=== PATIENT | female | born 2000 | race Two or more races ===

== ENCOUNTER 2025-08-08 19:07 | Observation (INO) | payer MEDICAID, SELFPAY ==
[2025-08-08 19:14] VITALS: BMI 42.5
[2025-08-08 19:26] VITALS: BP 108/67; PULSE 86; RESP 17; RESP 99; TEMP 36.7
[2025-08-08 19:27] VITALS: BP 108/67; PULSE 86
== END 2025-08-08 20:16 | disposition home or self-care (01) ==
PROVIDERS: Admitting Provider Obstetrics & Gynecology; Visit Provider Obstetrics & Gynecology
DX: O36.8120 Decreased fetal movements, second trimester, not applicable or unspecified (principal); Z3A.27 27 weeks gestation of pregnancy
CPT/HCPCS: 59025; 59899

== ENCOUNTER 2025-08-11 09:05 | Outpatient (AMB) | payer MEDICAID, SELFPAY ==
[2025-08-11 09:18] VITALS: BP 119/77; PULSE 87; RESP 16; TEMP 36.7; O2SAT 98; BMI 42.4
--- NOTE | 2025-08-11 09:18 | OBCLNT_ITS ---
Vital Signs 08/11/25 09:18 Height 1.63 m Height Method Stated Weight 112.661 kg Weight Measurement Method Standing Scale BMI 42.4 BP 119/77 Blood Pressure Source Automatic Cuff Blood Pressure Location Left Upper Arm Position Sitting Respiration 16 Pulse 87 Pulse Source Monitor Temp 98.1 F Temp Source Oral Pulse Oximetry (%) 98 Oxygen Delivery Method Room Air Allergies/Home Meds Allergies & Medications Allergies amoxicillin Allergy (Verified 08/11/25 09:19) Medication Reconciliation prenat.vits,eddie,[id number] 1 tab PO QDAY 12/04/20 [History Confirmed 08/11/25] aspirin 81 mg tablet,delayed release mg 08/08/25 [History Confirmed 08/11/25] Intake Visit Data Collection New Patient or Established: Established Patient (seen at [facility] within 3 years) Reason for Visit:: INITIAL CARE Seen by Clinical Staff ONLY (RN/MA): No Hand Booked Folder And Stitcher Required: No Do You Feel Safe at Home: Yes Authorities Contacted: N/A PCP or OBGYN visit in last 3 months: Yes Hx Now: Yes Are you currently on any form of Control: No Pain Present Currently: No Pain Scale Used: White-Goodman/Numerical Pain scale:: 0 Smoking Status Smoking Status: Never smoker Questionnaires Covid-19 Vaccine Questionnaire Has patient been vacinated for Covid-19 Have you been vacinated for Covid-19: Yes PHQ-9 PHQ-2 Over the last 2 weeks, how often have you been bothered by any of the following problems? 1. Little interest or pleasure in doing things: not at all 2. Feeling down, depressed, or hopeless: not at all Total score: 0 PHQ-9 3. Trouble falling or staying asleep, or sleeping too much: Not at all 4. Feeling tired or having little energy: Not at all 5. Poor appetite or overeating: Not at all 6. Feeling bad about yourself - or that you are a failure or have let yourself or your family down: Not at all 7. Trouble concentrating on things, such as reading the newspaper or watching television: Not at all 8. Moving or speaking so slowly that other people could have noticed? - Or the opposite - being so fidgety or restless that you have been moving around a lot more than usual: not at all 9. Thoughts that you would be better off or of hurting yourself in some way: Not at all Total score: 0 Source: Developed by Drs. Jamie Kohler, Sofía Whittaker, Barrett Manzo and colleagues, with an educational miranda from [employer]. 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 Feel Safe at Home: Yes History of Present Illness HPI Narrative Patient is a 24-year-old at 28 weeks and 0 days gestation, presenting for transfer of care from [facility]. She reports experiencing regular discomforts, including sciatic pain, stomach pain, some cramping, and pressure. She denies any significant complications or concerns with her current . She has a history of one previous resulting in primary in 2020 for late decelerations with category 3 tracing, complicated by placental abruption. Her son from her previous has autism but is otherwise healthy. Her last menstrual period was on 01-27-2025, with an estimated due date of 11-03-2025. She has been receiving care from Dr. Hahn and has been attending appointments every 2 weeks. The patient reports that all her labs and ultrasounds have been good so far. 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: Past Medical History Past Medical History: No Hx Neurological Disorders, No Hx Cardiac Disorders, No Hx Cancer, No Hx Blood Disorders, No Hx Gastrointestinal Disorders, No Hx Renal Disease, No Hx Diabetes Mellitus Type 1 and No Hx Diabetes Mellitus Type 2 OB Initial Visit OB Flowsheet OB Flowsheet Initial Weight: Not Recorded Date -?-?-?-?-?-?-?-?-?-?-?-?- EGA Weight BP Alb Glu CTX Pres Fundal ht FHR Mov Dilation Station Effacement Hx Notes Visit Note 08/11/25 -?-?-?-?-?-?-?-?-?-?-?-?- 28w 0d 112.661 kg 119/77 absent cephalic 30 14 5 active - Samy Oates is a 24-year-old female presenting for Transfer of Care from [facility] at 28 weeks gestation. - Past obstetric history significant for primary in 2020 due to late decelerations with category 3 tracing. - Current : - LMP: 01/27/2025 - CHARLA: 11/03/2025 - Patient reports experiencing: - Regular discomforts - Sciatic pain - Stomach pain - Some cramping - Some pressure - Denies any major complications in curr ent - Previous child has autism but is otherwise healthy - Schedule at 39 weeks; date to be provided at next visit - Order CBC and RPR today - Follow up in 2 weeks (at 30 weeks gest ation) - Administer Tdap vaccine at next visit - Schedule high-level ultrasound between 30-34 weeks to check placenta, growth, and anatomy - Continue visits every 2 weeks until 35 weeks, then weekly thereafter Menstrual History Menstrual reliability: definite Flow: normal Menstrual regularity: regular Monthly: Yes Age at menarche: 13 On control pills at conception: No OB History : 2 Para: 1 # of Living Children: 1 Delivery History 1st : Child's name: DANI date: 12/04/20 sex: male Gestational age at delivery (weeks): 40 Delivery type: Delivery complications: EMERGENCY C SECTION History of depression before or after : No Infection History & Risk Evaluation History of STDs: none Genetic Screening & History Genetic Screening/Teratology Counseling - Includes patient, baby's father, or anyone in either family with: 1. Patient's age 35 years or older as of estimated date of delivery: No 2. Thalassemia (Greenlandic, Luxembourgish, Mediterranean, or Background); MCV less than 80: No 3. Neural Tube Defect (Meningomyelocele, Spina Bifida, or Anencephaly): No 4. Congenital Heart Defect: No 5. Down Syndrome: No 6. Johnny-Sachs (Ashkenazi Yazdanism, Cajun, Vietnamese Huntley): No 7. Aston Disease (Ashkenazi Yazdanism): No 8. Familial Dysautonomia (Ashkenazi Yazdanism): No 9. Sickle Cell Disease or Trait (): No 10. Hemophilia or other blood disorders: No 11. Muscular Dystrophy: No 12. Cystic Fibrosis: No 13. [place]'s Chorea: No 14. Mental Retardation/Autism: Yes (AUTISM SON) 15. Other inherited genetic or chromosomal disorder: No 16. Maternal Metabolic Disorder (EG,TYPE 1 Diabetes, PKU): No 17. Patient or baby's father had a child with defects not listed above: No 18. Recurrent loss or a stillbirth: No 19. Medications (including supplements, vitamins, herbs or otc drugs)/illicit/recreational drugs/alcohol since last menstrual period: No 20. Any other: No Infection History 1. Live with someone with TB or exposed to TB: No 2. Rash or viral illness since last menstrual period: No 3. Hepatitis B,C: No Other (see comments) Source: [employer] Exam General General Appearance: alert, in no apparent distress and healthy appearing Head Head exam: atraumatic Neck Neck exam: Present normal inspection and trachea midline Chest Chest inspection: Present normal inspection and symmetric chest wall rise External exam: Present normal external exam; Absent tenderness Neuro Neurological exam: Present oriented X3 Psych Psychiatric exam: Present normal affect and normal mood Office Procedures OB Clinic LOC & Office Proc's Nursing/Assessment Patient Status: Established Patient OB Clinic Nursing Assessment: Medication Reconciliation, Update PMH in EMR and Vital Signs OB Clinic Coordination of Care: Complex Care and Chronic Disease 1-5, Consent,records obtained, informed consent, Education Simp Pt/Fam, 1 Ins Authorization, Lab and Imaging orders, Results/Orders obtained and Staff clarify orders Special Needs: Heart tones Established Patient Charge Established Patient Point Assignment: 150 Established Patient Point Charge: EP Level 4 (120-155) Assessment & Plan Diagnosis / Problem List (1) Supervision of high risk , unspecified, first trimester: Status: Acute (2) Maternal care for low transverse scar from previous delivery: Status: Acute (3) Morbid obesity due to excess calories: Status: Acute Plan , intrauterine, 28 weeks Assessment: Patient is a 24-year-old at 28 weeks and 0 days gestation based on LMP of 01/27/2025, with CHARLA of 11/03/2025. History of primary in 2020 for late decelerations with category 3 tracing, reported as placental abruption. Current is uncomplicated with normal labs and genetic screening. Patient reports regular discomforts including sciatic pain, stomach pain, cramping, and pressure. Plan: - Order CBC and RPR - Schedule follow-up appointment in 2 weeks - Plan for high-level ultrasound between 30-34 weeks gestation - Schedule 39-week repeat - Administer Tdap vaccine at 30-week appointment - Continue care with visits every 2 weeks until 35 weeks, then weekly Obesity Assessment: Patient's weight is 112 kg with a BMI of 42.4, which falls into the obesity category. Plan: - Monitor weight gain throughout
== END 2025-08-11 09:33 | disposition home or self-care (01) ==
LOC: HODSOBC 09:05
PROVIDERS: Supervising Provider Obstetrics & Gynecology; Visit Provider Obstetrics & Gynecology
DX: O09.293 Supervision of pregnancy with other poor reproductive or obstetric history, third trimester (principal); O34.211 Maternal care for low transverse scar from previous cesarean delivery; O09.893 Supervision of other high risk pregnancies, third trimester; O99.213 Obesity complicating pregnancy, third trimester; E66.01 Morbid (severe) obesity due to excess calories; Z3A.28 28 weeks gestation of pregnancy; Z87.59 Personal history of other complications of pregnancy, childbirth and the puerperium; Z88.0 Allergy status to penicillin
CPT/HCPCS: 99214; G0463

== ENCOUNTER 2025-08-30 10:07 | Outpatient (AMB) | payer MEDICAID, SELFPAY ==
[2025-08-30 10:32] VITALS: BP 115/66; PULSE 84; RESP 16; TEMP 36.4; O2SAT 98; BMI 42.9
--- NOTE | 2025-08-30 10:32 | OBCLNT_ITS ---
Vital Signs 08/30/25 10:32 Height 1.63 m Height Method Stated Weight 114.022 kg Weight Measurement Method Standing Scale BMI 42.9 BP 115/66 Blood Pressure Source Automatic Cuff Blood Pressure Location Left Upper Arm Position Sitting Respiration 16 Pulse 84 Pulse Source Monitor Temp 97.6 F Temp Source Oral Pulse Oximetry (%) 98 Oxygen Delivery Method Room Air Allergies/Home Meds Allergies & Medications Allergies amoxicillin Allergy (Verified 08/30/25 10:33) Medication Reconciliation prenat.vits,eddie,[id number] 1 tab PO QDAY 12/04/20 [History Confirmed 08/30/25] aspirin 81 mg tablet,delayed release mg 08/08/25 [History Confirmed 08/30/25] Intake Visit Data Collection New Patient or Established: Established Patient (seen at [facility] within 3 years) Reason for Visit:: CARE Seen by Clinical Staff ONLY (RN/MA): No Brush Fabrication Supervisor Required: No Do You Feel Safe at Home: Yes Authorities Contacted: N/A PCP or OBGYN visit in last 3 months: Yes Hx Now: Yes Are you currently on any form of Control: No Pain Present Currently: No Pain Scale Used: White-Goodman/Numerical Pain scale:: 0 Smoking Status Smoking Status: Never smoker Questionnaires Covid-19 Vaccine Questionnaire Has patient been vacinated for Covid-19 Have you been vacinated for Covid-19: Yes PHQ-9 PHQ-2 Over the last 2 weeks, how often have you been bothered by any of the following problems? 1. Little interest or pleasure in doing things: not at all 2. Feeling down, depressed, or hopeless: not at all Total score: 0 PHQ-9 3. Trouble falling or staying asleep, or sleeping too much: Not at all 4. Feeling tired or having little energy: Not at all 5. Poor appetite or overeating: Not at all 6. Feeling bad about yourself - or that you are a failure or have let yourself or your family down: Not at all 7. Trouble concentrating on things, such as reading the newspaper or watching television: Not at all 8. Moving or speaking so slowly that other people could have noticed? - Or the opposite - being so fidgety or restless that you have been moving around a lot more than usual: not at all 9. Thoughts that you would be better off or of hurting yourself in some way: Not at all Total score: 0 Source: Developed by Drs. Jamie Kohler, Sofía Whittaker, Barrett Manzo and colleagues, with an educational miranda from [employer]. 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: Past Medical History Past Medical History: No Hx Neurological Disorders, No Hx Cardiac Disorders, No Hx Cancer, No Hx Blood Disorders, No Hx Gastrointestinal Disorders, No Hx Renal Disease, No Hx Diabetes Mellitus Type 1 and No Hx Diabetes Mellitus Type 2 Care OB Visit Log OB Flowsheet Initial Weight: Not Recorded Date -?-?-?-?-?-?-?-?-?-?-?-?- EGA Weight BP Alb Glu CTX Pres Fundal ht FHR Mov Dilation Station Effacement Hx Notes Visit Note 08/11/25 -?-?-?-?-?-?-?-?-?-?-?-?- 28w 0d 112.661 kg 119/77 absent cephalic 30 14 5 active - Samy Oates is a 24-year-old female presenting for Transfer of Care from [facility] at 28 weeks gestation. - Past obstetric history significant for primary in 2020 due to late decelerations with category 3 tracing. - Current : - LMP: 01/27/2025 - CHARLA: 11/03/2025 - Patient reports experiencing: - Regular discomforts - Sciatic pain - Stomach pain - Some cramping - Some pressure - Denies any major complications in curr ent - Previous child has autism but is otherwise healthy - Schedule at 39 weeks; date to be provided at next visit - Order CBC and RPR today - Follow up in 2 weeks (at 30 weeks gest ation) - Administer Tdap vaccine at next visit - Schedule high-level ultrasound between 30-34 weeks to check placenta, growth, and anatomy - Continue visits every 2 weeks until 35 weeks, then weekly thereafter 08/30/25 -?-?-?-?-?-?-?-?-?-?-?-?- 30w 5d 114.022 kg 115/66 absent cephalic 32 15 2 active - Patient reports: - No leaking of fluid - No vaginal bleeding - movement present - Patient has decided on a repeat C-sect ion for delivery. - Recent ultrasound and genetic testing scheduled for two days from visit date. - Scheduled for November 02 at 7:30 AM - Tdap vaccination to be administered to day - Ultrasound scheduled for Saturday (tw o days from now), including genetic testing - Follow-up appointment in 2 weeks - Patient advised to have take t cathleen off work from after Thanksgiving for about a week around the date CHARLA Calculator Estimated Delivery Date Method Current WG Current Estimate 11/03/25 LMP (Certain) 30w 5d Other Estimates 10/29/25 Ultrasound #1 31w 3d 11/03/25 Manual 30w 5d Final due date by last menstrual period Notes Visit Date: 08/11/25 Last Updated by: Kirill Morin MD - CBC (03-21-2025): Hemoglobin 11.8 g/dL, platelets 288 - Panel (03-21-2025): Blood group O-positive, antibody screen negative, RPR nonreactive, hepatitis B negative, HIV negative, rubella immune - [place] genetic screening (May 2020): Negative Office Procedures OBC Clinic LOC & Office Proc's Nursing/Assessment Patient Status: Established Patient OB Clinic Nursing Assessment: Medication Reconciliation, Update PMH in EMR and Vital Signs OB Clinic Coordination of Care: Complex Care and Chronic Disease 1-5, C onsent,records obtained, informed consent, Education Simp Pt/Fam, Lab and Imaging orders, Results/Orders obtained and Staff clarify orders Special Needs: Heart tones Established Patient Charge Established Patient Point Assignment: 135 Established Patient Point Charge: EP Level 4 (120-155) Immunizations diphth,pertus(acell),tetanus 2.5 Lf unit-8 mcg-5 Lf/0.5mL IM syringe Performing Provider: Kirill Morin MD Performing Location: [facility] Administered by: Anahi Ellison MA on 08/30/25 10:58 Dose Route Admin Location Dispensed Lot Number Expiration Date Pack age [facility] Corporate Quality Assurance Manager 0.5 mL IM Left Deltoid 0.5 mL [id number] 10/21/27 82829-779-88 [id number] [employer] VIS Given Date VIS Provided VIS Publication Date 08/30/25 Single Vaccine 25 Eligibility Eligibility Date Funding Source [facility] Assessment & Plan Diagnosis / Problem List (1) Supervision of high risk , unspecified, third trimester: Status: Acute (2) Maternal care for low transverse scar from previous delivery: Status: Acute Plan Problem List - , 30 weeks and 5 days - 2, Para 1 - Scheduled repeat section Assessment at 30 weeks and 5 days gestation, presenting for routine visit. Patient's hemoglobin is 11.7 g/dL, which is within normal range. ARPIA test is negative. heart rate is 152 bpm, which is within normal limits. Patient reports normal movement, with no leaking or bleeding. Patient has decided on a repeat section for delivery. EDC is noted as November 03, with the section tentatively scheduled for November 02 at 39 weeks and 5 or 6 days gestation. Plan - Scheduled for November 02 at 7:30 AM - Tdap vaccination to be administered today - Ultrasound scheduled for Saturday (two days from now), including genetic testing - Follow-up appointment in 2 weeks - Patient advised to have take time off work from after Thanksgi for about a week around the date 1. Progress Reviewed gestational age, growth, and heart rate. Planned frequent visits (every 2 weeks until 36 weeks, then weekly). 2. Instructed patient to monitor movements and report decreases i mmediately. 3. Testing Counseled on routine third-trimester labs per guidelines. Discussed potential need for ultrasound or monitoring based on risk factors. 4. Preeclampsia Precaution Educated on preeclampsia signs: severe headache, vision changes, right upper quadrant pain, sudden swelling. Advised urgent reporting of symptoms and discussed blood pressure monitoring if high risk. 5. Labor Precautions Reviewed labor signs: regular contractions, pelvic pressure, back pain, bleeding, or fluid leakage. Instructed to seek immediate care for these symptoms. 6. Lifestyle and Delivery Preparation Reinforced vitamins, nutrition, and safe activity. Discussed plan, pain management, and . Advised on labor preparation (e.g., hospital bag) and expectations. 7. Psychosocial Support Assessed emotional well-being and offered resources for mental health or parenting support.
== END 2025-08-30 10:58 | disposition home or self-care (01) ==
LOC: HODSOBC 10:07
PROVIDERS: Supervising Provider Obstetrics & Gynecology; Visit Provider Obstetrics & Gynecology
DX: O09.293 Supervision of pregnancy with other poor reproductive or obstetric history, third trimester (principal); O34.211 Maternal care for low transverse scar from previous cesarean delivery; Z3A.30 30 weeks gestation of pregnancy; Z23 Encounter for immunization; Z88.0 Allergy status to penicillin
CPT/HCPCS: 90471; 90715; 99214; G0463

== ENCOUNTER 2025-09-21 17:41 | Observation (INO) | payer MEDICAID, SELFPAY ==
[2025-09-21 17:41] VITALS: BP 118/57; RESP 16; RESP 99; TEMP 37.1
[2025-09-21 18:08] VITALS: BP 115/57; PULSE 80
[2025-09-21 18:33] LABS: ROM Kit Exp Date# 4/11/28; ROM Kit Lot # 58106258; Swb Mxed in Solvent 1 min? Yes
[2025-09-21 18:34] LABS: ROM Swab Mixed By: ASTOA1; Rupture of Fetal Membranes Negative (Negative)
[2025-09-21 18:38] VITALS: BP 118/57; PULSE 76
[2025-09-21 18:47] VITALS: BMI 43.9
== END 2025-09-21 19:08 | disposition home or self-care (01) ==
PROVIDERS: Admitting Provider Obstetrics & Gynecology; Visit Provider Obstetrics & Gynecology
DX: O26.899 Other specified pregnancy related conditions, unspecified trimester (principal); Z3A.00 Weeks of gestation of pregnancy not specified; R10.20 Pelvic and perineal pain unspecified side
CPT/HCPCS: 59025; 59899; 84112

== ENCOUNTER 2025-09-24 09:04 | Outpatient (AMB) | payer MEDICAID, SELFPAY ==
[2025-09-24 09:16] VITALS: BP 122/75; PULSE 74; RESP 18; TEMP 36.2; O2SAT 99; BMI 42.5
--- NOTE | 2025-09-24 09:16 | AMB.OBVISIT ---
Vital Signs 09/24/25 09:16 Height 1.66 m Height Method Stated Weight 117.225 kg Weight Measurement Method Standing Scale BMI 42.5 BP 122/75 Blood Pressure Source Automatic Cuff Blood Pressure Location Left Upper Arm Position Sitting Respiration 18 Pulse 74 Pulse Source Monitor Temp 97.2 F Temp Source Oral Pulse Oximetry (%) 99 Oxygen Delivery Method Room Air Allergies/Home Meds Allergies & Medications Allergies amoxicillin Allergy (Verified 09/24/25 09:17) Medication Reconciliation prenat.vits,eddie,[id number] 1 tab PO QDAY 12/04/20 [History Confirmed 09/24/25] aspirin 81 mg tablet,delayed release mg 08/08/25 [History Confirmed 09/24/25] vits no.130-ferrous fum 27 mg iron-folic acid 800 mcg tablet ( Vitamin) tab PO QDAY 09/21/25 [History Confirmed 09/24/25] Intake Visit Data Collection New Patient or Established: Established Patient (seen at [facility] within 3 years) Reason for Visit:: OBC Seen by Clinical Staff ONLY (RN/MA): No Breakdown Person Required: No Do You Feel Safe at Home: Yes Authorities Contacted: N/A PCP or OBGYN visit in last 3 months: Yes Date of Last PCP or OBGYN visit: 09/22/25 Hx Now: Yes Are you currently on any form of Control: No Pain Present Currently: No Pain Scale Used: White-Goodman/Numerical Pain scale:: 0 Smoking Status Smoking Status: Never smoker Immunizations Flu Vaccine in the Last 12 Months: No Flu Vaccine Exclusion Criteria: No Exclusion Criteria Questionnaires Covid-19 Vaccine Questionnaire Has patient been vacinated for Covid-19 Have you been vacinated for Covid-19: Yes PHQ-9 PHQ-2 Over the last 2 weeks, how often have you been bothered by any of the following problems? 1. Little interest or pleasure in doing things: not at all 2. Feeling down, depressed, or hopeless: not at all Total score: 0 PHQ-9 3. Trouble falling or staying asleep, or sleeping too much: Not at all 4. Feeling tired or having little energy: Not at all 5. Poor appetite or overeating: Not at all 6. Feeling bad about yourself - or that you are a failure or have let yourself or your family down: Not at all 7. Trouble concentrating on things, such as reading the newspaper or watching television: Not at all 8. Moving or speaking so slowly that other people could have noticed? - Or the opposite - being so fidgety or restless that you have been moving around a lot more than usual: not at all 9. Thoughts that you would be better off or of hurting yourself in some way: Not at all Total score: 0 If you checked off any problems, how difficult have these problems made it for you to do your work, take care of things at home, or get along with other people?: not difficult at all Source: Developed by Drs. Jamie Kohler, Sofía Whittaker, Barrett Manzo and colleagues, with an educational miranda from [employer]. 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 History Past Medical History: No Hx Neurological Disorders, No Hx Cardiac Disorders, No Hx Cancer, No Hx Blood Disorders, No Hx Gastrointestinal Disorders, No Hx Renal Disease, No Hx Diabetes Mellitus Type 1 and No Hx Diabetes Mellitus Type 2 Care OB Visit Log OB Flowsheet Initial Weight: Not Recorded Date <del>?</del> EGA Weight BP Alb Glu CTX Pres Fundal ht FHR Mov Dilation Station Effacement Hx Notes Visit Note 08/11/25 <del>?</del> 28w 0d 112.661 kg 119/77 absent cephalic 30 145 active - Samy Oates is a 24-year-old female presenting for Transfer of Care from [facility] at 28 weeks gestation. - Past obstetric history significant for primary in 2020 due to late decelerations with category 3 tracing. - Current : - LMP: 01/27/2025 - CHARLA: 11/03/2025 - Patient reports experiencing: - Regular discomforts - Sciatic pain - Stomach pain - Some cramping - Some pressure - Denies any major complications in current - Previous child has autism but is otherwise healthy - Schedule at 39 weeks; date to be provided at next visit - Order CBC and RPR today - Follow up in 2 weeks (at 30 weeks gestation) - Administer Tdap vaccine at next visit - Schedule high-level ultrasound between 30-34 weeks to check placenta, growth, and anatomy - Continue visits every 2 weeks until 35 weeks, then weekly thereafter 08/30/25 <del>?</del> 30w 5d 114.022 kg 115/66 absent cephalic 32 152 active - Patient reports: - No leaking of fluid - No vaginal bleeding - movement present - Patient has decided on a repeat for delivery. - Recent ultrasound and genetic testing scheduled for two days from visit date. - Scheduled for November 02 at 7:30 AM - Tdap vaccination to be administered today - Ultrasound scheduled for Saturday (two days from now), including genetic testing - Follow-up appointment in 2 weeks - Patient advised to have take time off work from after for about a week around the date 09/24/25 <del>?</del> 34w 2d 117.225 kg 122/75 absent cephalic 34 148 active - She reports experiencing random pains around her belly button area. - These pains occur intermittently and do not happen all the time. - This was her only concern at the visit. - She denies contractions or cramping. - She had an ultrasound performed since her last visit in [place]. - rescheduled to October 29 at 12:30 PM (day after ) - Patient to check in at 10:00 AM on day of surgery - NPO instructions to be provided closer to surgery date - Follow-up appointment in 2 weeks, then weekly visits once patient reaches 35 weeks gestation - Group B Strep culture to be performed at next appointment - RSV and flu vaccines recommended for patient and household members who will handle baby (available at [facility], [facility]) CHARLA Calculator Estimated Delivery Date Method Current WG Current Estimate 11/03/25 LMP (Certain) 34w 5d Other Estimates 10/29/25 Ultrasound #1 35w 3d 11/03/25 Manual 34w 5d Final due date by last menstrual period Notes Visit Date: 08/11/25 Last Updated by: Kirill Morin MD - CBC (03-21-2025): Hemoglobin 11.8 g/dL, platelets 288 - Panel (03-21-2025): Blood group O-positive, antibody screen negative, RPR nonreactive, hepatitis B negative, HIV negative, rubella immune - [place] genetic screening (May 2020): Negative Office Procedures OBC Clinic LOC & Office Proc's Nursing/Assessment Patient Status: Established Patient OB Clinic Nursing Assessment: Medication Reconciliation, Update PMH in EMR and Vital Signs OB Clinic Coordination of Care: Consent,records obtained, informed consent, Education Simp Pt/Fam, Lab and Imaging orders, Results/Orders obtained and Staff clarify orders Special Needs: Heart tones Established Patient Charge Established Patient Point Assignment: 110 Established Patient Point Charge: EP Level 3 (80-115) Assessment & Plan Diagnosis / Problem List (1) Supervision of high risk , unspecified, third trimester: Status: Acute Plan Assessment Patient reports intermittent random pains localized around the umbilical area, which are consistent with round ligament stretching during . Recent ultrasound shows weight of 2018 grams at 88th percentile with otherwise normal study findings. Baby is measuring larger than average, though this is not concerning given planned delivery. Plan - rescheduled to October 29 at 12:30 PM (day after ) - Patient to check in at 10:00 AM on day of surgery - NPO instructions to be provided closer to surgery date - Follow-up appointment in 2 weeks, then weekly visits once patient reaches 35 weeks gestation - Group B Strep culture to be performed at next appointment - RSV and flu vaccines recommended for patient and household members who will handle baby (available at [facility], [facility]) 1. Progress Reviewed gestational age, growth, and heart rate. Baby measuring in 88th percentile at 2018 grams with otherwise normal ultrasound findings. Planned frequent visits (every 2 weeks until 35 weeks, then weekly). scheduled for October 29 at 12:30 PM with check-in at 10:00 AM. 2. Instructed patient to monitor movements and report decreases immediately. 3. Testing Group B Strep culture scheduled for next appointment. Counseled on routine third-trimester labs per guidelines. Discussed potential need for ultrasound or monitoring based on risk factors. 4. Preeclampsia Precaution Educated on preeclampsia signs: severe headache, vision changes, right upper quadrant pain, sudden swelling. Advised urgent reporting of symptoms and discussed blood pressure monitoring if high risk. 5. Labor Precautions Reviewed labor signs: regular contractions, pelvic pressure, back pain, bleeding, or fluid leakage. Instructed her to seek immediate care for these symptoms. Patient reported intermittent round ligament pain around umbilicus, which was explained as normal stretching. 6. Lifestyle and Delivery Preparation Reinforced vitamins, nutrition, and safe activity. Discussed plan, pain management, and . Advised on labor preparation (e.g., hospital bag) and expectations. Pre-operative instructions to be provided closer to date including NPO guidelines. 7. Psychosocial Support Assessed her emotional well-being and offered resources for mental health or parenting support. Recommended RSV and flu vaccines for patient and household members who will handle the baby, available at local pharmacies.
== END 2025-09-24 09:50 | disposition home or self-care (01) ==
LOC: HODSOBC 09:04
PROVIDERS: PCP Family Medicine; Referring Provider Family Medicine; Supervising Provider Obstetrics & Gynecology; Visit Provider Obstetrics & Gynecology
DX: O09.293 Supervision of pregnancy with other poor reproductive or obstetric history, third trimester (principal); O34.219 Maternal care for unspecified type scar from previous cesarean delivery; Z3A.34 34 weeks gestation of pregnancy; Z88.0 Allergy status to penicillin
CPT/HCPCS: 99213; G0463

== ENCOUNTER 2025-10-14 15:33 | Outpatient (AMB) | payer MEDICAID, SELFPAY ==
--- NOTE | 2025-10-14 15:43 | OBCLNT_ITS ---
Vital Signs 10/14/25 15:44 Height 1.66 m Height Method Stated Weight 117.934 kg Weight Measurement Method Standing Scale BMI 42.7 BP 126/82 Blood Pressure Source Automatic Cuff Blood Pressure Location Left Upper Arm Position Sitting Respiration 16 Pulse 80 Pulse Source Monitor Temp 97.4 F Temp Source Oral Pulse Oximetry (%) 97 Oxygen Delivery Method Room Air Allergies/Home Meds Allergies & Medications Allergies amoxicillin Allergy (Verified 10/14/25 15:44) Medication Reconciliation prenat.vits,eddie,[id number] 1 tab PO QDAY 12/04/20 [History Confirmed 10/14/25] aspirin 81 mg tablet,delayed release mg 08/08/25 [History Confirmed 10/14/25] vits no.130-ferrous fum 27 mg iron-folic acid 800 mcg tablet ( Vitamin) tab PO QDAY 09/21/25 [History Confirmed 10/14/25] Intake Visit Data Collection New Patient or Established: Established Patient (seen at [facility] within 3 years) Reason for Visit:: CARE/ GBS DONE Seen by Clinical Staff ONLY (RN/MA): No Regional Telecommunications Specialist Required: No Do You Feel Safe at Home: Yes Authorities Contacted: N/A PCP or OBGYN visit in last 3 months: Yes Hx Now: Yes Are you currently on any form of Control: No Pain Present Currently: No Pain Scale Used: White-Goodman/Numerical Pain scale:: 0 Smoking Status Smoking Status: Never smoker Immunizations Flu Vaccine in the Last 12 Months: Yes Flu Vaccine Exclusion Criteria: Already Received Questionnaires Covid-19 Vaccine Questionnaire Has patient been vacinated for Covid-19 Have you been vacinated for Covid-19: Yes PHQ-9 PHQ-2 Over the last 2 weeks, how often have you been bothered by any of the following problems? 1. Little interest or pleasure in doing things: not at all 2. Feeling down, depressed, or hopeless: not at all Total score: 0 PHQ-9 3. Trouble falling or staying asleep, or sleeping too much: Not at all 4. Feeling tired or having little energy: Not at all 5. Poor appetite or overeating: Not at all 6. Feeling bad about yourself - or that you are a failure or have let yourself or your family down: Not at all 7. Trouble concentrating on things, such as reading the newspaper or watching te levision: Not at all 8. Moving or speaking so slowly that other people could have noticed? - Or the opposite - being so fidgety or restless that you have been moving around a lot more than usual: not at all 9. Thoughts that you would be better off or of hurting yourself in some way: Not at all Total score: 0 Source: Developed by Drs. Jamie Kohler, Sofía Whittaker, Barrett Manzo and colleagues, with an educational miranda from [employer]. 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 History Past Medical History: No Hx Neurological Disorders, No Hx Cardiac Disorders, No Hx Cancer, No Hx Blood Disorders, No Hx Gastrointestinal Disorders, No Hx Renal Disease, No Hx Diabetes Mellitus Type 1 and No Hx Diabetes Mellitus Type 2 Care OB Visit Log OB Flowsheet Initial Weight: Not Recorded Date -?-?-?-?-?-?-?-?-?-?-?-?- EGA Weight BP Alb Glu CTX Pres Fundal ht FHR Mov Dilation Station Effacement Hx Notes Visit Note 08/11/25 -?-?-?-?-?-?-?-?-?-?-?-?- 28w 0d 112.661 kg 119/77 absent cephalic 30 14 5 active - Saym Oates is a 24-year-old female presenting for Transfer of Care from [facility] at 28 weeks gestation. - Past obstetric history significant for primary in 2020 due to late decelerations with category 3 tracing. - Current : - LMP: 01/27/2025 - CHARLA: 11/03/2025 - Patient reports experiencing: - Regular discomforts - Sciatic pain - Stomach pain - Some cramping - Some pressure - Denies any major complications in curr ent - Previous child has autism but is otherwise healthy - Schedule at 39 weeks; date to be provided at next visit - Order CBC and RPR today - Follow up in 2 weeks (at 30 weeks gest ation) - Administer Tdap vaccine at next visit - Schedule high-level ultrasound between 30-34 weeks to check placenta, growth, and anatomy - Continue visits every 2 weeks until 35 weeks, then weekly thereafter 08/30/25 -?-?-?-?-?-?-?-?-?-?-?-?- 30w 5d 114.022 kg 115/66 absent cephalic 32 15 2 active - Patient reports: - No leaking of fluid - No vaginal bleeding - movement present - Patient has decided on a repeat C-sect ion for delivery. - Recent ultrasound and genetic testing scheduled for two days from visit date. - Scheduled for November 02 at 7:30 AM - Tdap vaccination to be administered to day - Ultrasound scheduled for Saturday (tw o days from now), including genetic testing - Follow-up appointment in 2 weeks - Patient advised to have take t cathleen off work from after for about a week around the date 09/24/25 -?-?-?-?-?-?-?-?-?-?-?-?- 34w 2d 117.225 kg 122/75 absent cephalic 34 14 8 active - She reports experiencing random pains around her belly button area. - These pains occur intermittently and do not happen all the time. - This was her only concern at the [facility]. - She denies contractions or cramping. - She had an ultrasound performed since her last visit in [place]. - rescheduled to October 29 at 12:30 PM ( after ) - Patient to check in at 10:00 AM on day of surgery - NPO instructions to be provided closer to surgery date - Follow-up appointment in 2 weeks, then weekly visits once patient reaches 35 weeks gestation - Group B Strep culture to be performed at next appointment - RSV and flu vaccines recommended for p atient and household members who will handle baby (available at [facility], [facility]) 10/14/25 -?-?-?-?-?-?-?-?-?-?-?-?- 37w 1d 117.934 kg 126/82 absent cephalic 37 16 4 active - She reports lots of cramping and a couple of contractions over the last few days, but nothing consistent. - She has noticed decreased moveme nt, stating the baby moves but not as frequently as recommended (like 10 kicks every 2 hours). - She reports a little bit of leaking fl uid. - Yesterday morning, after emptying he r bladder, there was a gush of water. - The leaking has not happened since y , but her underwear has been getting wet. - She denies any bleeding, reporting onl y clear leakage. - She has not been checked for cervical dilation this . - Check fluid measurement numbers and send patient for re-measurement of amniotic fluid - Perform Amnisure test to evaluate for rupture of membranes - Collect Group B Strep swab - Scheduled on 10-29-2025 CHARLA Calculator Estimated Delivery Date Method Current WG Current Estimate 11/03/25 LMP (Certain) 37w 1d Other Estimates 10/29/25 Ultrasound #1 37w 6d 11/03/25 Manual 37w 1d Final due date by last menstrual period Notes Visit Date: 08/11/25 Last Updated by: Kirill Morin MD - CBC (03-21-2025): Hemoglobin 11.8 g/dL, platelets 288 - Panel (03-21-2025): Blood group O-positive, antibody screen negative, RPR nonreactive, hepatitis B negative, HIV negative, rubella immune - [place] genetic screening (May 2020): Negative Office Procedures OBC Clinic LOC & Office Proc's Nursing/Assessment Patient Status: Established Patient OB Clinic Nursing Assessment: Medication Reconciliation, Update PMH in EMR and Vital Signs OB Clinic Coordination of Care: Complex Care and Chronic Disease 1-5, Consen t,records obtained, informed consent, Education Simp Pt/Fam, 1 Ins Authorization, Lab and Imaging orders, Results/Orders obtained and Staff clarify orders Special Needs: Heart tones Miscellaneous Interventions: Culture Specimen Collection Established Patient Charge Established Patient Point Assignment: 165 Established Patient Point Charge: EP Level 5 (160-above) Assessment & Plan Diagnosis / Problem List (1) Supervision of high risk , unspecified, third trimester: Status: Acute (2) Maternal care for low transverse scar from previous delivery: Status: Acute (3) Morbid obesity due to excess calories: Status: Acute Plan Problem List - at 37 weeks and 1 day gestation - Decreased movement - Oligohydramnios - Premature rupture of membranes Assessment 37-week and 1-day patient with decreased movement reporting less frequent kicks than recommended guidelines, oligohydramnios with significantly decreased amniotic fluid levels compared to prior week and clear fluid leakage following bladder emptying yesterday morning with continued wetness, irregular uterine cramping and contractions over recent days without consistency, and estimated weight at 88th percentile. Cervical examination reveals closed cervix with no dilation. heart rate is 139 bpm which is within normal limits. Patient denies vaginal bleeding. Plan - Check fluid measurement numbers and send patient for re-measurement of amniotic fluid - Perform Amnisure test to evaluate for rupture of membranes - Collect Group B Strep swab - Scheduled on 10-29-2025 1. Progress Reviewed gestational age (37 weeks 1 day), growth (EFW 88th percentile), and heart rate (139 bpm, normal). Planned frequent visits (every 2 weeks until 36 weeks, then weekly). Scheduled on 10-29-2025. 2. Instructed patient to monitor movements and report decreases immediately. Educated on proper kick count technique: once morning and evening, 2-3 good movements in 30 minutes, if not felt wait another 30 minutes and come in if still no movement. Discussed use of vibroacoustic stimulation if concerned about decreased movement. 3. Testing Counseled on routine third-trimester labs per guidelines. Performed Group B Strep collection. Discussed potential need for ultrasound (fluid re-measurement) and Amnisure test based on her reported fluid leakage. 4. Preeclampsia Precaution Educated on preeclampsia signs: severe headache, vision changes, right upper quadrant pain, sudden swelling. Advised urgent reporting of symptoms and discussed blood pressure monitoring if high risk. 5. Labor Precautions Reviewed labor signs: regular contractions, pelvic pressure, back pain, bleeding, or fluid leakage. Patient reported cramping and contractions over last few days but nothing consistent, and clear fluid leakage. Cervical exam performed - cervix closed, not dilated. Instructed to seek immediate care for concerning symptoms. 6. Lifestyle and Delivery Preparation Reinforced vitamins, nutrition, and safe activity. Discussed plan (scheduled 10-29-2025), pain management, and . Advised on labor preparation (e.g., hospital bag) and expectations. 7. Psychosocial Support Assessed her emotional well-being and offered resources for mental health or parenting support.
[2025-10-14 15:44] VITALS: BP 126/82; PULSE 80; RESP 16; TEMP 36.3; O2SAT 97; BMI 42.7
== END 2025-10-14 16:05 | disposition home or self-care (01) ==
LOC: HODSOBC 15:33
PROVIDERS: PCP Family Medicine; Referring Provider Family Medicine; Supervising Provider Obstetrics & Gynecology; Visit Provider Obstetrics & Gynecology
DX: O09.293 Supervision of pregnancy with other poor reproductive or obstetric history, third trimester (principal); O34.211 Maternal care for low transverse scar from previous cesarean delivery; O09.893 Supervision of other high risk pregnancies, third trimester; O99.213 Obesity complicating pregnancy, third trimester; E66.01 Morbid (severe) obesity due to excess calories; O36.8130 Decreased fetal movements, third trimester, not applicable or unspecified; O41.03X0 Oligohydramnios, third trimester, not applicable or unspecified; O42.92 Full-term premature rupture of membranes, unspecified as to length of time between rupture and onset of labor; Z3A.37 37 weeks gestation of pregnancy; Z36.85 Encounter for antenatal screening for Streptococcus B; Z88.0 Allergy status to penicillin
CPT/HCPCS: 99215; G0463

== ENCOUNTER 2025-10-14 16:22 | Observation (INO) | payer MEDICAID, SELFPAY ==
--- NOTE | 2025-10-14 16:31 | XR_ITS ---
Examination: Complete OB ultrasound greater than 14 weeks Date and time of exam: October 14, 2025, 1632 hours INDICATIONS: Leaking amniotic fluid today Findings: Viable intrauterine single fetus with single amniotic sac presentation cephalic spine posterior Cardiac motion 153 bpm Placenta anterior grade 3 Umbilical cord insertion 3 vessel seen Amniotic fluid index 11.4 cm Cervix 3.7 cm Ovaries obscured by bowel gas. Composite estimated gestational age based on BPD, head circumference, abdominal circumference, femur length is 37 weeks 2 days Estimated weight 3135.2 g. Survey of intracranial anatomy, spinal anatomy, abdominal anatomy, four-chamber heart performed with no abnormalities identified. Impression: Viable intrauterine gestation cephalic presentation.
[2025-10-14 16:50] VITALS: BP 118/65; PULSE 81; RESP 18; RESP 99; TEMP 36.7
[2025-10-14 16:52] VITALS: BP 118/65; PULSE 81
[2025-10-14 16:55] LABS: ROM Kit Lot # 58106258
[2025-10-14 16:56] LABS: ROM Swab Mixed By: SAUCT; Swb Mxed in Solvent 1 min? Yes
[2025-10-14 16:57] LABS: Rupture of Fetal Membranes Negative (Negative)
== END 2025-10-14 17:35 | disposition home or self-care (01) ==
PROVIDERS: Admitting Provider Obstetrics & Gynecology; Visit Provider Obstetrics & Gynecology
DX: Z34.83 Encounter for supervision of other normal pregnancy, third trimester (principal); Z3A.37 37 weeks gestation of pregnancy
CPT/HCPCS: 59025; 59899; 76805; 84112

== ENCOUNTER 2025-10-20 11:31 | Outpatient (AMB) | payer MEDICAID, SELFPAY ==
[2025-10-20 11:48] VITALS: BP 117/72; PULSE 62; RESP 18; TEMP 36.3; O2SAT 98; BMI 43.3
--- NOTE | 2025-10-20 11:48 | OBCLNT_ITS ---
Vital Signs 10/20/25 11:48 Height 1.66 m Height Method Stated Weight 119.351 kg Weight Measurement Method Standing Scale BMI 43.3 BP 117/72 Blood Pressure Source Automatic Cuff Blood Pressure Location Right Upper Arm Position Sitting Respiration 18 Pulse 62 Pulse Source Monitor Temp 97.3 F Temp Source Temporal Artery Scan Pulse Oximetry (%) 98 Oxygen Delivery Method Room Air Allergies/Home Meds Allergies & Medications Allergies amoxicillin Allergy (Verified 10/20/25 11:49) Medication Reconciliation prenat.vits,eddie,fbh-wrhm-ptitg 1 tab PO QDAY 12/04/20 [History Confirmed 10/20/25] aspirin 81 mg tablet,delayed release mg 08/08/25 [History Confirmed 10/20/25] vits no.130-ferrous fum 27 mg iron-folic acid 800 mcg tablet ( Vitamin) tab PO QDAY 09/21/25 [History Confirmed 10/20/25] Immunizations Immunizations Flu Vaccine in the Last 12 Months: Yes Flu Vaccine Exclusion Criteria: Already Received Care OB Visit Log OB Flowsheet Initial Weight: Not Recorded Date -?-?-?-?-?-?-?-?-?-?-?-?- EGA Weight BP Alb Glu CTX Pres Fundal ht FHR Mov Dilation Station Effacement Hx Notes Visit Note 08/11/25 -?-?-?-?-?-?-?-?-?-?-?-?- 28w 0d 112.661 kg 119/77 absent cephalic 30 14 5 active - Samy Oates is a 24-year-old female presenting for Transfer of Care from [facility] at 28 weeks gestation. - Past obstetric history significant for primary in 2020 due to late decelerations with category 3 tracing. - Current : - LMP: 01/27/2025 - CHARLA: 11/03/2025 - Patient reports experiencing: - Regular discomforts - Sciatic pain - Stomach pain - Some cramping - Some pressure - Denies any major complications in curr ent - Previous child has autism but is otherwise healthy - Schedule at 39 weeks; date to be provided at next visit - Order CBC and RPR today - Follow up in 2 weeks (at 30 weeks gest ation) - Administer Tdap vaccine at next visit - Schedule high-level ultrasound between 30-34 weeks to check placenta, growth, and anatomy - Continue visits every 2 weeks until 35 weeks, then weekly thereafter 08/30/25 -?-?-?-?-?-?-?-?-?-?-?-?- 30w 5d 114.022 kg 115/66 absent cephalic 32 15 2 active - Patient reports: - No leaking of fluid - No vaginal bleeding - movement present - Patient has decided on a repeat C-sect ion for delivery. - Recent ultrasound and genetic testing scheduled for two days from visit date. - Scheduled for November 02 at 7:30 AM - Tdap vaccination to be administered to day - Ultrasound scheduled for Saturday (tw o days from now), including genetic testing - Follow-up appointment in 2 weeks - Patient advised to have take t cathleen off work from after for about a week around the date 09/24/25 -?-?-?-?-?-?-?-?--?-?-?-?- 34w 2d 117.225 kg 122/75 absent cephalic 34 14 8 active - She reports experiencing random pains around her belly button area. - These pains occur intermittently and do not happen all the time. - This was her only concern at the [facility]. - She denies contractions or cramping. - She had an ultrasound performed since her last visit in [place]. - rescheduled to October 29 at 12:30 PM (day after ) - Patient to check in at 10:00 AM on day of surgery - NPO instructions to be provided closer to surgery date - Follow-up appointment in 2 weeks, then weekly visits once patient reaches 35 weeks gestation - Group B Strep culture to be performed at next appointment - RSV and flu vaccines recommended for p atient and household members who will handle baby ([facility] 10/14/25 -?-?-?-?-?-?-?-?-?-?-?-?- 37w 1d 117.934 kg 126/82 absent cephalic 37 16 4 active - She reports lots of cramping and a couple of contractions over the last few days, but nothing consistent. - She has noticed decreased moveme nt, stating the baby moves but not as frequently as recommended (like 10 kicks every 2 hours). - She reports a little bit of leaking fl uid. - Yesterday morning, after emptying he r bladder, there was a gush of water. - The leaking has not happened since y , but her underwear has been getting wet. - She denies any bleeding, reporting onl y clear leakage. - She has not been checked for cervical dilation this . - Check fluid measurement numbers and send patient for re-measurement of amniotic fluid - Perform Amnisure test to evaluate for rupture of membranes - Collect Group B Strep swab - Scheduled on 10-29-2025 10/20/25 -?-?-?-?-?-?-?-?-?-?-?-?- 38w 0d 119.351 kg 117/72 absent cephalic 40 15 5 active - She is scheduled for repeat on October 29 at 12:30 PM, with hospital arrival at 10:00 AM. - Patient reports baby is active. - She denies contractions or leaking flu id. - Patient has been attending weekly [place] visits every Saturday, with her most recent visit this morning showing good results. - She has one more appointment scheduled for next Saturday before delivery. - Patient reports her older son initiall y had difficulty adjusting to the but now refers to the baby as my baby brother. - Scheduled repeat section on October 29, 2025 at 12:30 PM, patient to arrive at hospital at 10:00 AM - NPO (nothing by mouth) for 8 hours maggie or to surgery - no food or drink after 2:00 AM on day of surgery - No vitamins or medications on morning of surgery - Continue weekly visits until delivery (final visit scheduled for October 27, 2025) - If contractions develop, present to [address] [place] [address] labor and delivery unit for evaluation and possible earlier delivery CHARLA Calculator Estimated Delivery Date Method Current WG Current Estimate 11/03/25 LMP (Certain) 38w 0d Other Estimates 10/29/25 Ultrasound #1 38w 5d 11/03/25 Manual 38w 0d Final due date by last menstrual period Notes Visit Date: 08/11/25 Last Updated by: Kirill Morin MD - CBC (03-21-2025): Hemoglobin 11.8 g/dL, platelets 288 - Panel (03-21-2025): Blood group O-positive, antibody screen negative, RPR nonreactive, hepatitis B negative, HIV negative, rubella immune - Q- genetic screening (May 2020): Negative Office Procedures OBC Clinic LOC & Office Proc's Nursing/Assessment Patient Status: Established Patient OB Clinic Nursing Assessment: Medication Reconciliation, Update PMH in EMR and Vital Signs OB Clinic Coordination of Care: Complex Care and Chronic Disease 1-5, Education Complex Pt/Fam, Consent,records obtained, informed consent, Lab and Imaging orders, Results/Orders obtained and Staff clarify orders Special Needs: Heart tones Established Patient Charge Established Patient Point Assignment: 140 Established Patient Point Charge: EP Level 4 (120-155) Assessment & Plan Diagnosis / Problem List (1) Supervision of high risk , unspecified, third trimester: Status: Acute (2) Maternal care for low transverse scar from previous delivery: Status: Acute Plan Problem List - at 38 weeks and 0 days - History of delivery Assessment at 38 weeks and 0 days gestation scheduled for repeat section. Patient reports active movement with no contractions or leaking of fluid. Recent testing this morning showed reassuring results. Plan - Scheduled repeat section on October 29, 2025 at 12:30 PM, patient to arrive at hospital at 10:00 AM - NPO (nothing by mouth) for 8 hours prior to surgery - no food or drink after 2:00 AM on day of surgery - No vitamins or medications on morning of surgery - Continue weekly visits until delivery (final visit scheduled for October 27, 2025) - If contractions develop, present to 4th floor labor and delivery unit for evaluation and possible earlier delivery 1. Progress Reviewed gestational age (38 weeks 0 days), growth, and heart rate. Patient reports baby is active. Planned frequent visits (every 2 weeks until 36 weeks, then weekly) - patient attending weekly visits on Wednesdays. 2. Instructed patient to monitor movements and report decreases immediately. 3. Testing Counseled on routine third-trimester labs per guidelines. Discussed potential need for ultrasound or monitoring based on risk factors. 4. Preeclampsia Precaution Educated on preeclampsia signs: severe headache, vision changes, right upper quadrant pain, sudden swelling. Advised urgent reporting of symptoms and discussed blood pressure monitoring if high risk. 5. Labor Precautions Reviewed labor signs: regular contractions, pelvic pressure, back pain, bleeding, or fluid leakage. Instructed to seek immediate care for these symptoms. Patient advised to come in sooner if contractions develop and to report to 4th floor. 6. Lifestyle and Delivery Preparation Reinforced vitamins, nutrition, and safe activity. Patient instructed not to take vitamins morning of surgery. Discussed plan (scheduled repeat October 29 at 12:30 PM, arrive at hospital at 10 AM), pain management, and . Advised on labor preparation (NPO after 2 AM on day of surgery) and expectations. Confirmed preparations for baby to come home are complete. 7. Psychosocial Support Assessed emotional well-being and offered resources for mental health or parenting support. Discussed sibling preparation - patient's son is adjusting w ell to upcoming baby brother.
== END 2025-10-20 12:03 | disposition home or self-care (01) ==
PROVIDERS: Supervising Provider Obstetrics & Gynecology; Visit Provider Obstetrics & Gynecology
DX: O09.293 Supervision of pregnancy with other poor reproductive or obstetric history, third trimester (principal); O34.211 Maternal care for low transverse scar from previous cesarean delivery; Z3A.38 38 weeks gestation of pregnancy; Z88.0 Allergy status to penicillin
CPT/HCPCS: 99214; G0463

== ENCOUNTER 2025-10-27 07:55 | Outpatient (RCR) | payer MEDICAID, SELFPAY ==
--- NOTE | 2025-09-01 15:25 | XR_ITS ---
Examination: Biophysical profile, ultrasound Date and time of exam: September 01, 2025, 1526 hours INDICATIONS: Diagnosis high risk Technique: Multiple transabdominal sonographic images of the pelvis abdomen obtained. Attention is directed to the breathing movement, gross body movement, amniotic fluid volume and tone. Findings: Amniotic fluid index 11.6 cm Total biophysical profile is 8 of 8. breathing movement is 2. Gross body movement is 2. tone is 2. Qualitative amniotic fluid volume is 2 Impression: Biophysical profile is 8 of 8.
[2025-09-01 15:57] VITALS: BP 123/73; PULSE 78; RESP 16; TEMP 36.7
--- NOTE | 2025-09-08 08:41 | XR_ITS ---
Examination: Biophysical profile, ultrasound Date and time of exam: September 08, 2025, 0843 hours INDICATIONS: Diagnosis high risk Technique: Multiple transabdominal sonographic images of the pelvis abdomen obtained. Attention is directed to the breathing movement, gross body movement, amniotic fluid volume and tone. Findings: Amniotic fluid index 19.6 cm Total biophysical profile is 8 of 8. breathing movement is 2. Gross body movement is 2. tone is 2. Qualitative amniotic fluid volume is 2 Impression: Biophysical profile is 8 of 8.
[2025-09-08 09:05] VITALS: BP 138/61; PULSE 98; RESP 16
--- NOTE | 2025-09-15 08:53 | XR_ITS ---
Examination: Biophysical profile, ultrasound Date and time of exam: September 15, 2025, 0854 hours INDICATIONS: Diagnosis high risk Technique: Multiple transabdominal sonographic images of the pelvis abdomen obtained. Attention is directed to the breathing movement, gross body movement, amniotic fluid volume and tone. Findings: Amniotic fluid index 18.5 cm Total biophysical profile is 8 of 8. breathing movement is 2. Gross body movement is 2. tone is 2. Qualitative amniotic fluid volume is 2 Impression: Biophysical profile is 8 of 8.
[2025-09-15 09:13] VITALS: BP 135/78; PULSE 73; RESP 16; TEMP 36.8
--- NOTE | 2025-09-22 08:29 | XR_ITS ---
Examination: Biophysical profile, ultrasound Date and time of exam: September 22 0841 hours INDICATIONS: Diagnosis high risk Technique: Multiple transabdominal sonographic images of the pelvis abdomen obtained. Attention is directed to the breathing movement, gross body movement, amniotic fluid volume and tone. Findings: Amniotic fluid index 12.6 cm Total biophysical profile is 8 of 8. breathing movement is 2. Gross body movement is 2. tone is 2. Qualitative amniotic fluid volume is 2 Impression: Biophysical profile is 8 of 8.
[2025-09-22 09:05] VITALS: BP 129/64; PULSE 88; RESP 18
--- NOTE | 2025-09-29 08:23 | XR_ITS ---
Examination: Biophysical profile, ultrasound Date and time of exam: September 29, 2025, 0822 hours INDICATIONS: Diagnosis high risk Technique: Multiple transabdominal sonographic images of the pelvis abdomen obtained. Attention is directed to the breathing movement, gross body movement, amniotic fluid volume and tone. Findings: Amniotic fluid index 12.4 cm Total biophysical profile is 8 of 8. breathing movement is 2. Gross body movement is 2. tone is 2. Qualitative amniotic fluid volume is 2 Impression: Biophysical profile is 8 of 8.
[2025-09-29 08:44] VITALS: BP 125/76; PULSE 87; RESP 16; TEMP 36.7
--- NOTE | 2025-10-06 08:33 | XR_ITS ---
Examination: Biophysical profile, ultrasound Date and time of exam: 10/06/2025, 8:35 a.m. INDICATION: Weekly NST/BPP due to obesity COMPARISON: Ultrasound BPP 09/29/2025 Technique: Multiple transabdominal sonographic images of the pelvis abdomen obtained. Attention is directed to the breathing movement, gross body movement, amniotic fluid volume and tone. Findings: Single live IUP in cephalic position. Total biophysical profile is 8 of 8. breathing movement is 2. Gross body movement is 2. tone is 2. Qualitative amniotic fluid volume is 2 RORO: 12.6 cm. FHR: 145 bpm. Impression: Biophysical profile is 8 of 8 as before.
[2025-10-06 09:23] VITALS: BP 116/65; PULSE 82; RESP 16; TEMP 36.8
--- NOTE | 2025-10-13 08:37 | XR_ITS ---
Examination: Biophysical profile, ultrasound Date and time of exam: October 13, 2025, 0828 hours INDICATIONS: Diagnosis maternal obesity Technique: Multiple transabdominal sonographic images of the pelvis abdomen obtained. Attention is directed to the breathing movement, gross body movement, amniotic fluid volume and tone. Findings: Amniotic fluid index 7.4 cm Total biophysical profile is 8 of 8. breathing movement is 2. Gross body movement is 2. tone is 2. Qualitative amniotic fluid volume is 2 Impression: Biophysical profile is 8 of 8.
[2025-10-13 09:02] VITALS: BP 127/71; PULSE 81; RESP 16; TEMP 37
--- NOTE | 2025-10-20 08:34 | XR_ITS ---
Examination: Biophysical profile, ultrasound Date and time of exam: October 20, 2025, 0844 hours INDICATIONS: Diagnosis maternal obesity Technique: Multiple transabdominal sonographic images of the pelvis abdomen obtained. Attention is directed to the breathing movement, gross body movement, amniotic fluid volume and tone. Findings: Amniotic fluid index 14.8 cm Total biophysical profile is 8 of 8. breathing movement is 2. Gross body movement is 2. tone is 2. Qualitative amniotic fluid volume is 2 Impression: Biophysical profile is 8 of 8.
[2025-10-20 09:00] VITALS: BP 121/59; PULSE 81; RESP 16; TEMP 36.6
--- NOTE | 2025-10-27 08:13 | XR_ITS ---
EXAMINATION: US OB biophysical profile ORDERING PROVIDER: Kirill Morin MD HISTORY: WEEKLY NST/BPP; OBESITY TECHNIQUE: Multiple transabdominal sonographic images were obtained by applied technologist and submitted for interpretation. COMPARISON: 10/20/2025, biophysical profile. FINDINGS: FETUS: [place]. PRESENTATION: Cephalic. HEART MOTION: 137 beats/min. AMNIOTIC FLUID INDEX: 11.6 cm BREATHING MOVEMENT: 2 . GROSS BODY MOVEMENT: 2 . TONE: 2 . QUALITATIVE AMNIOTIC FLUID VOLUME: 2 TOTAL BIOPHYSICAL PROFILE: 8 of 8 . IMPRESSION: Single live intrauterine gestation with biophysical profile 8 of 8.
[2025-10-27 08:59] VITALS: BP 129/70; PULSE 88; RESP 16; TEMP 36.7
== END 2025-10-27 23:59 | disposition home or self-care (01) ==
LOC: S4S1 07:55
PROVIDERS: PCP Physician Assistant; Referring Provider Obstetrics & Gynecology; Visit Provider Obstetrics & Gynecology
DX: O09.93 Supervision of high risk pregnancy, unspecified, third trimester (principal); O34.211 Maternal care for low transverse scar from previous cesarean delivery; O99.213 Obesity complicating pregnancy, third trimester; E66.01 Morbid (severe) obesity due to excess calories; Z3A.39 39 weeks gestation of pregnancy
CPT/HCPCS: 59025; 76819

== ENCOUNTER 2025-10-29 10:45 | Inpatient (IN) | payer MEDICAID, SELFPAY ==
[2025-10-29] VITALS (12 sets, daily range): BP systolic 118–134; BP diastolic 60–82; PULSE 73–100; RESP 12–20; TEMP 36.6–37; O2SAT 98–100; BMI 45.4
[2025-10-29] MEDS: RINGERS LACTATED 1000 ML 1,000 ML 100 ML IV ×2 (10:25→11:11)
[2025-10-29 11:13] LABS: Basophils # (Auto) 0.0 Thou/mm3 (0.0-0.2); Basophils % (Auto) 0 % (0-2.5); Eosinophils # (Auto) 0.2 Thou/mm3 (0.0-0.5); Eosinophils % (Auto) 2 % (0-10); Hematocrit 33.2 % (36.0-46.0); Hemoglobin 11.0 g/dL (12.0-16.0); Immature Granulocytes Auto 0.04 Thou/mm3 (0.00-0.00); Lymphocytes # (Auto) 2.7 Thou/mm3 (1.0-4.8); Lymphocytes % (Auto) 26 % (10-50); Mean Corpuscular HGB Conc 33.1 g/dl (31.0-37.0); Mean Corpuscular Hemoglobin 28.0 pg (25.0-35.0); Mean Corpuscular Volume 85 fL (80-100); Monocytes # (Auto) 0.7 Thou/mm3 (0.0-0.8); Monocytes % (Auto) 6 % (0-12); Neutrophils # (Auto) 6.8 Thou/mm3 (1.8-7.7); Neutrophils % (Auto) 66 % (37-80); Nucleated Red Blood Cell # 0.00 Thou/mm3 (0.00-0.00); Nucleated Red Blood Cell % 0 /100 WBC (0); Platelet Count 252 Thou/mm3 (140-440); RDW Standard Deviation 41.1 fL (36.4-46.3); Red Blood Count 3.93 Miln/mm3 (4.00-5.20); White Blood Count 10.4 Thou/mm3 (3.6-11.0)
[2025-10-29 11:46] LABS: Syphilis Nonreactive (Nonreactive)
[2025-10-29] MEDS: ceFAZolin/D5W 2 GM IV 2 GM/100 ML BAG IV (12:06)
[2025-10-29] MEDS: METOCLOPRAMIDE INJ 5 MG/ML VIAL 2 ML 10 MG IVP (12:06)
[2025-10-29] MEDS: FAMOTIDINE INJ 10 MG/ML VIAL 2 ML 20 MG IV (12:07)
--- NOTE | 2025-10-29 12:23 | ESHP_ITS ---
Documentation for date of: 10/29/25 OB Labor/Induct. HPI History of Present Illness Chief complaint: Scheduled repeat low-transverse : 2 Para: 1 Term pregnancies: 2 pregnancies: 0 Living children: 2 History of Abortions: Spontaneous and Elective: 0 History of Vaginal deliveries: 0 History of sections: Yes History of : No CHARLA: 11/03/25 History of present illness: Samy is a 25-year-old 2 para 1-0-0-1 at 39 weeks and 2 days who is presenting for her scheduled repeat low-transverse Patient denies any contractions or leakage of fluid or vaginal bleeding and reports adequate movements. Patient has a history of 1 previous due to category 3 heart rate tracing secondary to placental abruption. Current has been uncomplicated so far. [facility] in the third trimester. Labs Labs: Positive: Rubella Titre, Negative: RPR, Hepatitis B, HIV, Chlamydia, Gonorrhea and Group Beta Strep and Unknown: Herpes Type 1, Herpes Type 2 and Covid-19 Review of Systems Review of Systems Systems Reviewed: All systems reviewed, normal except as documented Past Medical History Surgical History SURGICAL: Positive Section Meds Home Medications and Allergies Home Medications ?Medication ?Instructions ?Recorded ?Confirmed ?Type prenat.vits,eddie,lji-afej-txdtg 1 tab PO QDAY 12/04/20 10/29/25 History aspirin 81 mg tablet,delayed 81 mg PO QDAY 08/08/25 History release Allergies Allergy/AdvReac Type Severity Reaction Status Date / Time amoxicillin Allergy Verified 10/29/25 10:48 OB Exam Physical Exam Vital signs: Temp Pulse Resp BP O2 Del Method 97.8 F 100 20 128/69 Room Air 10/29/25 10:19 10/29/25 10:19 10/29/25 10:19 10/29/25 10:19 10/29/25 10:19 Constitutional Constitutional: no acute distress Routine HEENT Exam Head: Present normocephalic and atraumatic Eye: Present EOMI and PERRL ENT: Present mucous membranes moist Routine Neck Exam Neck: Present supple and trachea midline Routine Cardiovascular Exam Cardiovascular: Present RRR Routine Abdominal Exam Abdominal: Present soft and normoactive bowel sounds Detailed Labor and Delivery Exam Dilation (cm): 0 Baseline heart rate: 145 monitor accelerations: 15x15 monitor decelerations: None computer terminal operator variability: Average (6-10) Routine Extremities Exam Extremities: Present full ROM Routine Skin Exam Skin: Present intact, dry and warm Routine Neurological Exam Neurological: Present alert, oriented X3 and CN II-XII intact Routine Psychiatric Exam Psychiatric: Present normal affect and normal thought process OB Results Labs 10/29/25 10:25 Labs: Short CBC 10/29/25 Range/Units 10:25 WBC 10.4 (3.6-11.0) Thou/mm3 Hgb 11.0 L (12.0-16.0) g/dL Hct 33.2 L (36.0-46.0) % Plt Count 252 (140-440) Thou/mm3 OB Assessment & Plan Assessment and Plan (1) Supervision of high risk , unspecified, third trimester: Status: Acute (2) Morbid obesity due to excess calories: Status: Acute (3) Maternal care for low transverse scar from previous delivery: Status: Acute Assessment and plan: Admit to inpatient status for repeat low transverse IV access, CBC, type and screen, LR at 125, RPR, COVID-19 test GBS negative Ancef 2 g prior to surgery start Coffman catheter to drainage SCDs for DVT prophylaxis Anesthesia to preop for spinal anesthesia Scheduled for surgery.
--- NOTE | 2025-10-29 13:27 | PD.GYNPROC ---
Operative Note - REGISTERED PHLEBOTOMIST PART TIME Procedure Date of procedure: 10/29/25 Procedure Performed: Repeat low-transverse section Indication: 25-year-old 2 para 1 at 39 weeks and 3 days with previous x 1 Anesthesia type: Spinal Procedure description: Informed consent was obtained. The patient was brought to the operating room and identified with two patient identifiers. She was placed in the supine position, and spinal anesthesia was administered. After confirming adequate anesthesia, the abdomen and perineum were prepped and draped in the usual sterile fashion. A Coffman catheter was inserted for continuous bladder drainage. A low transverse (Pfannenstiel) skin incision was made using a scalpel and carried through subcutaneous tissue to the rectus fascia. The previous scar was identified and excised in its entirety. The fascia was incised transversely and dissected off the rectus muscles both superiorly and inferiorly. The rectus bellies were in the midline, and the peritoneum was entered bluntly with the surgeon?s finger. The peritoneal opening was extended to allow adequate exposure. An Samy O-ring retractor was placed for optimal visualization. Upon entering the abdominal cavity, extensive adhesions were noted between the uterus, omentum, and surrounding peritoneal structures. These were carefully lysed using sharp and blunt dissection. Significant oozing was noted from the adhesiolysis sites, which required meticulous hemostasis with electrocautery and irrigation. The lower uterine segment was palpated, and the bladder flap was reflected inferiorly. A low transverse uterine incision (Lien Ramirez) was made with a scalpel and extended bluntly. The amniotic membranes were ruptured, and clear fluid was released. The fetus was in vertex presentation. A Mityvac vacuum device was applied to the head. Vacuum-assisted delivery was accomplished without any pop-offs. A single loop of nuchal cord was noted and reduced. The shoulders and body were delivered smoothly with gentle fundal pressure. The umbilical cord was doubly clamped and cut, and the was handed to the awaiting team. Cord gases were obtained. The placenta was delivered with gentle traction on the cord. The uterine cavity was cleared of membranes and clots. The hysterotomy angles were secured with Allis clamps. The uterine incision was closed in two layers using #1 Monocryl: the first layer was a running locked suture to approximate the myometrium, and the second layer imbricated the serosa and myometrium. Hemostasis was confirmed. The Samy retractor was removed. Peritoneal edges and rectus muscles were reapproximated. Rectus fascia was closed with running PDS STRATAFIX. The subcutaneous tissue was irrigated with warm saline, and bleeding points were cauterized using Bovie electrocautery. Subcutaneous tissue was approximated with 2-0 Monocryl STRATAFIX. The skin was closed using 4-0 Monocryl in a subcuticular fashion. A sterile dressing was applied. The patient was cleaned, undraped, and transferred to the recovery room in stable and awake condition. She tolerated the procedure well. All counts were correct ?2. Estimated blood loss (ml): 600 Surgical staff Operation Date: 10/29/25 12:45 Case Staff HEALTH MANAGEMENT CONSULTANT: Eren Vázquez RN First Assistant: Suze Gaytan Diagnosis Discharge Diagnosis (1) Supervision of high risk , unspecified, third trimester: Status: Acute (2) Morbid obesity due to excess calories: Status: Acute (3) Maternal care for low transverse scar from previous delivery: Status: Acute (4) delivery delivered: Status: Acute Problem List Completed Was Problem List Reviewed/Reconciled?: Yes
--- NOTE | 2025-10-29 13:29 | OBDSUM_ITS ---
Data ([place]) Data Hx Section: Yes : 2 Term: 2 : 0 Livin Abortions: Spontaneous & Theraputic: 0 Delivery Data ([place]) Labor Data Induction/Augmentation Agent: None ROM date: 10/29/25 ROM time: 12:54 Amniotic membrane rupture type: Artificial Amniotic fluid description: Clear Delivery Data delivery date: 10/29/25 delivery time: 12:55 Placenta delivery date: 10/29/25 Placenta delivery time: 12:56 Delivered by: GERALD AHUMADA Delivery nurse: CORRINA METZGER RN [place] nurse: SUSAN DOSHI RN Insurance Claims Processor at delivery: No Support person(s) at delivery: FOB Other staff at delivery: SEE INTRAOP Delivery Method Delivery method: Low Transverse Presentation: Vertex Anesthesia Type Anesthesia Type: None Anesthesia type: Spinal Placenta Placenta delivery description: Manual Removal Cord blood sent to lab: Yes cord blood collection: Cord Blood Type Episiotomy Episiotomy description: None Umbilical Cord cord description: 3 Vessels Data ([place]) [place] Data order: 1 's gender: Male weight (gms): 3910 g Weight (pounds): 8 lbs and 9.9 ozs
[2025-10-29] MEDS: KETOROLAC INJ 30 MG/ML VIAL IVP (17:27)
[2025-10-29] MEDS: OXYTOCIN in NS 20 units 20 UNIT/1,000 ML BAG 125 UNIT IV (17:28)
[2025-10-30] VITALS: BP 125/80; PULSE 98; RESP 16; TEMP 37.2; O2SAT 98
[2025-10-30] MEDS: KETOROLAC INJ 30 MG/ML VIAL IVP (00:42)
[2025-10-30 04:00] VITALS: PULSE 85; RESP 16; TEMP 36.6; O2SAT 99
[2025-10-30 08:00] VITALS: BP 122/75; PULSE 94; RESP 18; TEMP 37.4; O2SAT 99
[2025-10-30 08:34] LABS: Basophils # (Auto) 0.1 Thou/mm3 (0.0-0.2); Basophils % (Auto) 0 % (0-2.5); Eosinophils # (Auto) 0.3 Thou/mm3 (0.0-0.5); Eosinophils % (Auto) 2 % (0-10); Hematocrit 29.4 % (36.0-46.0); Hemoglobin 9.6 g/dL (12.0-16.0); Immature Granulocytes Auto 0.05 Thou/mm3 (0.00-0.00); Lymphocytes # (Auto) 2.2 Thou/mm3 (1.0-4.8); Lymphocytes % (Auto) 17 % (10-50); Mean Corpuscular HGB Conc 32.7 g/dl (31.0-37.0); Mean Corpuscular Hemoglobin 28.1 pg (25.0-35.0); Mean Corpuscular Volume 86 fL (80-100); Monocytes # (Auto) 0.8 Thou/mm3 (0.0-0.8); Monocytes % (Auto) 6 % (0-12); Neutrophils # (Auto) 10.0 Thou/mm3 (1.8-7.7); Neutrophils % (Auto) 75 % (37-80); Nucleated Red Blood Cell # 0.00 Thou/mm3 (0.00-0.00); Nucleated Red Blood Cell % 0 /100 WBC (0); Platelet Count 259 Thou/mm3 (140-440); RDW Standard Deviation 42.0 fL (36.4-46.3); Red Blood Count 3.42 Miln/mm3 (4.00-5.20); White Blood Count 13.4 Thou/mm3 (3.6-11.0)
[2025-10-30] MEDS: DOCUSATE SOD 100 MG CAPSULE PO (09:01)
[2025-10-30] MEDS: ENOXAPARIN SOD INJ 40 MG/0.4 ML SYRINGE SC (09:01)
[2025-10-30] MEDS: IBUPROFEN TAB 400 MG TABLET 800 MG PO ×2 (09:01→22:38)
--- NOTE | 2025-10-30 09:28 | PD.LDPPPRG ---
Subjective Subjective Interval history: Patient is a 25-year-old -0-0-2 postoperative day #1 status post repeat scheduled by Dr. Morin 10/29/2025 around 1:00 in the afternoon. This morning the patient is resting comfortably in bed breast-feeding her . Her is at bedside. Patient has not been out of bed yet. Her dressing is in place. She is tolerating a general diet. She reports she passed some clots yesterday but her bleeding has been minimal since. Her predelivery hemoglobin is 11 postdelivery hemoglobin is 9.6. Exam Vital Signs Temp Pulse Resp BP Pulse Ox O2 Del Method 99.3 F 94 18 122/75 99 Nasal Cannula 10/30/25 08:00 10/30/25 08:00 10/30/25 08:00 10/30/25 08:00 10/30/25 08:00 10/30/25 08:00 Narrative Exam Patient is alert and orient x 3 in no apparent distress. She is resting comfortably in bed. Abdomen obese Dressing clean dry and intact Objective Labs 10/30/25 08:04 Labs: Laboratory Results - last 24 hr 10/29/25 10/30/25 10:25 08:04 WBC 10.4 13.4 H RBC 3.93 L 3.42 L Hgb 11.0 L 9.6 L Hct 33.2 L 29.4 L MCV 85 86 MCH 28.0 28.1 MCHC 33.1 32.7 RDW Std Deviation 41.1 42.0 Plt Count 252 259 Neut % (Auto) 66 75 Lymph % (Auto) 26 17 [place] % (Auto) 6 6 Eos % (Auto) 2 2 Baso % (Auto) 0 0 Neut # (Auto) 6.8 10.0 H Lymph # (Auto) 2.7 2.2 [place] # (Auto) 0.7 0.8 Eos # (Auto) 0.2 0.3 Baso # (Auto) 0.0 0.1 Immature Gran # (Auto) 0.04 H 0.05 H Absolute Nucleated RBC 0.00 0.00 Immature Gran % 0 0 Nucleated RBC % 0 0 Syphilis Serology Nonreactive Blood Type O Positive Antibody Screen NEGATIVE Blood Bank Wristband ID Yes Assessment & Plan Problem List (1) Supervision of high risk , unspecified, third trimester: Status: Acute (2) Morbid obesity due to excess calories: Problem details: Lovenox daily x 6 weeks post op. Status: Acute (3) Maternal care for low transverse scar from previous delivery: Problem details: Patient is doing well. Recheck hemoglobin tomorrow. Routine post op orders. Status: Acute (4) delivery delivered: Status: Acute Time Spent With Patient Time: Total time spent is greater than 50% in coordination of care (as documented) at patient's floor/unit and/or counseling patient: Time with patient: less than 15 minutes
--- NOTE | 2025-10-30 11:55 | PD.NBHP ---
Maternal Data Maternal Data Mother's Name: SOHAIL Total time ruptured membranes: Total Time Ruptured (Hours) 1 minutes Labs: Positive: Rubella Titre, Negative: Hepatitis B, HIV, Chlamydia, Gonorrhea and Group Beta Strep and Unknown: Herpes Type 1, Herpes Type 2 and Covid-19 [place] Data Gestational Age (weeks): 39 Gestational Age (days): 2 Weight (gms): 120.202 kg Length (cm): 1.63 m Exam Vital Signs-Last 24hrs Most Recent Vital Signs Temp 99.3 F 10/30/25 08:00 Pulse 94 10/30/25 08:00 Resp 18 10/30/25 08:00 BP 122/75 10/30/25 08:00 Pulse Ox 99 10/30/25 08:00 O2 Del Method Nasal Cannula 10/30/25 08:00 Diagnosis Diagnosis (1) Supervision of high risk , unspecified, third trimester: Status: Acute (2) Morbid obesity due to excess calories: Status: Acute (3) Maternal care for low transverse scar from previous delivery: Status: Acute (4) delivery delivered: Status: Acute
[2025-10-30 12:34] VITALS: BP 133/81; PULSE 98; RESP 16; TEMP 37.1; O2SAT 98
[2025-10-30] MEDS: SIMETHICONE 80 MG CHEW PO (15:57)
[2025-10-30] MEDS: HYDROcodone/APAP 5/325 TABLET 1 TAB PO (17:57)
[2025-10-30 19:50] VITALS: BP 129/84; PULSE 100; RESP 18; TEMP 36.8; O2SAT 97
[2025-10-31 03:52] VITALS: BP 125/79; PULSE 100; RESP 16; TEMP 36.7; O2SAT 99
[2025-10-31 05:37] LABS: Basophils # (Auto) 0.0 Thou/mm3 (0.0-0.2); Basophils % (Auto) 0 % (0-2.5); Eosinophils # (Auto) 0.2 Thou/mm3 (0.0-0.5); Eosinophils % (Auto) 2 % (0-10); Hematocrit 26.2 % (36.0-46.0); Immature Granulocytes Auto 0.05 Thou/mm3 (0.00-0.00); Lymphocytes # (Auto) 2.3 Thou/mm3 (1.0-4.8); Lymphocytes % (Auto) 23 % (10-50); Mean Corpuscular HGB Conc 32.4 g/dl (31.0-37.0); Mean Corpuscular Hemoglobin 28.7 pg (25.0-35.0); Mean Corpuscular Volume 89 fL (80-100); Monocytes # (Auto) 0.8 Thou/mm3 (0.0-0.8); Monocytes % (Auto) 8 % (0-12); Neutrophils # (Auto) 6.7 Thou/mm3 (1.8-7.7); Neutrophils % (Auto) 66 % (37-80); Nucleated Red Blood Cell # 0.00 Thou/mm3 (0.00-0.00); Nucleated Red Blood Cell % 0 /100 WBC (0); Platelet Count 244 Thou/mm3 (140-440); RDW Standard Deviation 43.7 fL (36.4-46.3); Red Blood Count 2.96 Miln/mm3 (4.00-5.20); White Blood Count 10.1 Thou/mm3 (3.6-11.0)
[2025-10-31 05:40] LABS: Hemoglobin 8.5 g/dL (12.0-16.0)
[2025-10-31] MEDS: IBUPROFEN TAB 400 MG TABLET 800 MG PO (07:28)
[2025-10-31 07:40] VITALS: BP 139/89; PULSE 106; RESP 18; TEMP 36.7; O2SAT 98
--- NOTE | 2025-10-31 08:38 | PD.LDDS ---
DS: Providers Provider Date of admission: 10/29/25 10:45 Primary care physician: Physician No Primary/Family Admitting Provider: Kirill Morin MD Attending Provider on Admission: Kirill Morin MD Consults: 10/29/25 13:55 Referral Routine Comment: Attending Provider on DC: Lauren Palafox MD Discharging Provider: Lauren Palafox MD DS: Diagnosis Discharge Diagnosis (1) delivery delivered: Status: Acute (2) Supervision of high risk , unspecified, third trimester: Status: Acute (3) Morbid obesity due to excess calories: Status: Acute (4) Maternal care for low transverse scar from previous delivery: Status: Acute Problem List Completed Was Problem List Reviewed/Reconciled?: Yes Summary/Hosp Course Brief History: Samy is a 25-year-old 2 para 1-0-0-1 at 39 weeks and 2 days who is presenting for her scheduled repeat low-transverse Patient denies any contractions or leakage of fluid or vaginal bleeding and reports adequate movements. Patient has a history of 1 previous due to category 3 heart rate tracing secondary to placental abruption. Current has been uncomplicated so far. Patient started care with Dr. Hahn at [facility]. She transferred care to the [facility] [employer] clinic in the third trimester. Peripartum Data Delivery Method: Low Transverse Episiotomy Description: None Procedures: Procedures Operation Date: 10/29/25 12:45 Actual Procedure Side Surgeon p in OB Not Applicable Kirill Morin MD Time Spent with Patient Time attestation: Total time spent providing and/or coordinating discharge services: Exam Vital Signs Temp Pulse Resp BP Pulse Ox O2 Del Method 98.0 F 106 H 18 139/89 H 98 Room Air 10/31/25 07:40 10/31/25 07:40 10/31/25 07:40 10/31/25 07:40 10/31/25 07:40 10/31/25 07:40 Patient has no/ complaints Headache no Blurry vision no Chest pain no Palpitations no Shortness of breath no Nausea or vomiting or constipation no Back pain no Dysuria no Dizziness no calf pain no She is voiding spontaneously after catheter removal yes Passing flatus yes Lochia minimal yes Narrative Exam alert x3 chest clear CVS RRR NO thyromegaly Uterus is nontender Uterus is firm/ appropriate size Just below the umbilicus Bowel sounds present Abdomen soft no hernias noted/no CVAT Incision CDI No drainage Appropriately tender No calf tenderness Edema mild Discharge Plan Plan Patient Disposition: HOME (Self Care) Patient condition on transfer: Stable Prescriptions/Referrals Prescriptions/Med Rec: New hydrocodone-acetaminophen 5-325 mg tablet 1 tab PO Q6H MDD 4 PRN (Reason: pain) 5 Days Qty: 20 0RF docusate sodium [Stool Softener] 100 mg capsule 100 mg PO QDAY 30 Days Qty: 30 0RF ibuprofen 600 mg tablet 600 mg PO Q6H MDD 4 PRN (Reason: fever or pain) 10 Days Qty: 40 0RF Continued prenat.vits,eddie,htp-bemd-dzyup Tablet 1 tab PO QDAY Discontinued aspirin 81 mg tablet,delayed release (DR/EC) 81 mg PO QDAY Patient Comments: TAKE TWO TABLETS BY MOUTH EVERY DAY FOR THE HEART FOR CIRCULATION Referrals: Kirill Morin MD [Physician, [employer]] No Primary/Family,Physician [Primary Care Provider] Patient/Caregiver Discharge Instructions Education Materials: Storing Expressed Milk, After a , Nutrition While , : Caring for Yourself, C Section Dc Print Language: Swedish Activity Restrictions/Additional Instructions: follow up in one week continue vitamin Stand Alone Forms: Mely Award Info., Patient Portal Info Letter Discharge Order Discharge Orders: Discharge (Routine); Ordered 10/31/25 Ordered By: Lauren Palafox Planned Discharge Date 10/31/25
[2025-10-31] MEDS: DOCUSATE SOD 100 MG CAPSULE PO (09:07)
[2025-10-31] MEDS: ENOXAPARIN SOD INJ 40 MG/0.4 ML SYRINGE SC (09:07)
== END 2025-10-31 11:20 | disposition home or self-care (01) | DRG 540 ==
LOC: S4SX 10:46 → S4NX 12:34
PROVIDERS: Obstetrics & Gynecology; Admitting Provider Obstetrics & Gynecology; Visit Provider Obstetrics & Gynecology
PROC: 10D00Z1 Extraction of Products of Conception, Low, Open Approach (ICD-10-PCS; CPT 59514; principal; 2025-10-29 12:30)
DX: O34.211 Maternal care for low transverse scar from previous cesarean delivery (principal); Z37.0 Single live birth; Z3A.39 39 weeks gestation of pregnancy; O69.81X0 Labor and delivery complicated by cord around neck, without compression, not applicable or unspecified; O99.214 Obesity complicating childbirth; E66.01 Morbid (severe) obesity due to excess calories; K66.0 Peritoneal adhesions (postprocedural) (postinfection)
CPT/HCPCS: 36415; 59409; 85025; 86780; 86850; 86900; 86901; 94762; A4217; A4314; A4649; J0689; J1650; J1885; J2590; J2765; J3490; J7120; A9270